=== PATIENT | female | born 1955 | race Caucasian/White ===

== ENCOUNTER 2016-11-04 12:35 | Emergency (ER) | payer OTHER ==
[2016-11-04 12:51] VITALS: BP 154/95; PULSE 80; TEMP 98.1; BMI 27.1
[2016-11-04] MEDS ORDERED: DIPHTH,PERTUSS(ACELL),TET 0.5 ML DISP.SYRIN IM ONE (13:02)
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
== END 2016-11-04 13:34 | disposition home or self-care (01) ==
LOC: FER 12:35
PROC: 3E0234Z Introduction of Serum, Toxoid and Vaccine into Muscle, Percutaneous Approach (ICD-10-PCS; principal; 2016-11-04)
DX: S47.1XXA Crushing injury of right shoulder and upper arm, initial encounter (principal); W50.3XXA Accidental bite by another person, initial encounter; Y93.89 Activity, other specified; Y92.219 Unspecified school as the place of occurrence of the external cause; Y99.0 Civilian activity done for income or pay; F17.210 Nicotine dependence, cigarettes, uncomplicated
CPT/HCPCS: 90715; 99283-25